=== PATIENT | female | born 1955 | race Caucasian/White ===

== ENCOUNTER 2019-07-19 22:15 | Emergency (ER) | payer OTHER ==
[~2019-07-19] VITALS: Ht 162.6 cm; Wt 61.0 kg
[~2019-07-19 22:15] MED LIST: CARBIDOPA-LEVO1 EACH PO; COLACE100 MG PO; LAMICTAL150 MG PO; MELATONIN3 MG PO; MELATONIN5 M2 PO; RENAGEL800 MG PO; RENAL VITAMIN0.8 MG PO; VENLAFAXINE HCL75 MG PO; VITAMIN D32000 UNI1 PO; WELLBUTRIN XL150 MG PO; ZOLPIDEM TARTRA10 MG PO
--- OUTSIDE RECORDS SUMMARY | 2019-07-19 22:18 | XMS ---
PreManage Notification: JAYJAY LEE Security Store Receiving Specialist Events No recent Security Events currently on file CRITERIA MET - HIPOLITOP CARE PROVIDERS Claude Trejo MD Primary Care Current PHONE: Unknown oraurelio Case or Brand Communications Manager Current PHONE: Unknown Phyllis has no Care Guidelines for this patient. Rupa VISIT COUNT (12 MO.) 1 [facility] TOTAL 1 NOTE: Visits indicate total known visits. ED/UCC VISIT TRACKING (12 MO.) 07/19/2019 22:[address] [facility] [place] TYPE: Emergency COMPLAINT: - FEVER, CHILLS INPATIENT VISIT TRACKING (12 MO.) No inpatient visits to display in this time frame [id number]
[2019-07-19] MEDS ORDERED: KEFLEX500 MG PO (23:44)
== END 2019-07-20 00:22 | disposition home or self-care (01) ==
LOC: ED 22:15
DX: N12 Tubulo-interstitial nephritis, not specified as acute or chronic (principal); Z88.0 Allergy status to penicillin; Z91.048 Other nonmedicinal substance allergy status; Z88.8 Allergy status to other drugs, medicaments and biological substances; Z88.5 Allergy status to narcotic agent; Z91.040 Latex allergy status; Z88.1 Allergy status to other antibiotic agents; Z79.899 Other long term (current) drug therapy
CPT/HCPCS: 71045; 80053; 81001; 83605; 85025; 87502; 96365; 99284-25; J0696; J7040

== ENCOUNTER 2021-06-17 11:25 | Emergency (ER) | payer MEDICARE ==
[~2021-06-17] VITALS: Ht 162.6 cm; Wt 56.0 kg
[~2021-06-17 11:25] MED LIST changes: +KEFLEX500 MG PO
[2021-06-17] MEDS ORDERED: CALCITRIOL0.25 MCG PO (12:19)
== END 2021-06-17 12:42 | disposition home or self-care (01) ==
LOC: ED 11:25
DX: T82.898A Other specified complication of vascular prosthetic devices, implants and grafts, initial encounter (principal); Z88.8 Allergy status to other drugs, medicaments and biological substances; Z88.0 Allergy status to penicillin; Z88.1 Allergy status to other antibiotic agents; Z91.048 Other nonmedicinal substance allergy status; Z88.5 Allergy status to narcotic agent; Z91.040 Latex allergy status; Z79.899 Other long term (current) drug therapy
CPT/HCPCS: 99283

== ENCOUNTER 2021-12-28 12:23 | Emergency (ER) | payer MEDICARE ==
[~2021-12-28] VITALS: Ht 162.6 cm; Wt 56.0 kg
[~2021-12-28 12:23] MED LIST changes: +CALCITRIOL0.25 MCG PO
== END 2021-12-28 14:20 | disposition home or self-care (01) ==
LOC: ED 12:23
DX: U07.1 COVID-19 (principal); Z88.0 Allergy status to penicillin; Z88.5 Allergy status to narcotic agent; Z88.8 Allergy status to other drugs, medicaments and biological substances; Z91.040 Latex allergy status; Z88.1 Allergy status to other antibiotic agents; Z79.899 Other long term (current) drug therapy
CPT/HCPCS: 96374; 99283-25

== ENCOUNTER → 2022-02-09 | Emergency (ER) | payer MEDICARE ==
[~2022-02-09] VITALS: Ht 162.6 cm; Wt 59.2 kg
[~2022-02-09] MED LIST changes: +CEPHALEXIN500 M1 PO
--- OUTSIDE RECORDS SUMMARY | 2022-02-09 08:30 | XMS ---
PreManage Notification: JAYJAY LEE Security Nurse Office Events No recent Security Events currently on file CRITERIA MET - [facility] - 2 Visits in 30 Days CARE PROVIDERS MYKE PAYAN Internal Medicine 07/20/2019-Current PHONE: Unknown Phyllis has no Care Guidelines for this patient. Care History Medical/Surgical 07/20/2019 [facility] - Patient is currently established with [facility]. If patient is seen in the ED during business hours. Please contact CHWs at [facility]. Care Recommendation: If this patient has had 5 or more Emergency Department visits in the last 12 months.\T\nbsp; Patient will require education on the scope and purpose of the ED as an acute care provider not a Primary Care Provider and should not be utilized for chronic conditions.\T\nbsp; These are guidelines and the provider should exercise clinical judgment when providing care. 07/20/2019 [facility] I left voice mail with patient to call PCP for 2 week follow up visit. E.D. VISIT COUNT (12 MO.) 4 [facility] TOTAL 4 NOTE: Visits indicate total known visits. ED/UCC VISIT TRACKING (12 MO.) 02/09/2022 08:23 [facility] [place] TYPE: Emergency COMPLAINT: - L FLANK PAIN, WEAKNESS 02/06/2022 06:21 [facility] [place] TYPE: Emergency COMPLAINT: - SOB, POSS UTI, UPPER ABD PAIN 12/28/2021 12:23 [facility] [place] TYPE: Emergency COMPLAINT: - FLU SYNPTOMS DIAGNOSES: - Latex allergy status - Other long term care pharmacist (current) drug therapy - Allergy status to narcotic agent - COVID-19 - Allergy status to other antibiotic agents - Allergy status to penicillin - Allergy status to other drugs, medicaments and biological substances 06/17/2021 11:27 [facility] [place] TYPE: Emergency COMPLAINT: - R ARM FISTULA BRUISING DIAGNOSES: - Latex allergy status - Other nonmedicinal substance allergy status - Allergy status to penicillin - Other specified complication of vascular prosthetic devices, implants and grafts, initial encounter - Allergy status to narcotic agent - Allergy status to other antibiotic agents - Allergy status to other drugs, medicaments and biological substances - Other specified complication of vascular prosthetic devices, implants and grafts, initial encounter - Other long term care pharmacist (current) drug therapy INPATIENT VISIT TRACKING (12 MO.) No inpatient visits to display in this time frame [id number]
== END ==
LOC: ED 08:23
DX: J18.9 Pneumonia, unspecified organism (principal); R09.02 Hypoxemia; U07.1 COVID-19; N39.0 Urinary tract infection, site not specified; N18.6 End stage renal disease; Z99.2 Dependence on renal dialysis; Z88.6 Allergy status to analgesic agent; Z88.1 Allergy status to other antibiotic agents; Z91.040 Latex allergy status; Z88.5 Allergy status to narcotic agent; Z88.0 Allergy status to penicillin; Z88.8 Allergy status to other drugs, medicaments and biological substances; Z91.048 Other nonmedicinal substance allergy status
CPT/HCPCS: 36415; 71045; 80053; 81001; 83605; 85025; 87502; 93005; 93010; C9803; J0456; J0692; J1170; J2405; J7030; J7060; U0003

== ENCOUNTER 2022-07-06 19:48 | Emergency (ER) | payer MEDICARE ==
[~2022-07-06] VITALS: Ht 160 cm; Wt 54.6 kg
[2022-07-06] MEDS ORDERED: ONDANSETRON ODT4 MG PO (22:11)
[2022-07-06] MEDS ORDERED: MECLIZINE HCL25 MG PO (22:11)
== END 2022-07-06 22:23 | disposition home or self-care (01) ==
LOC: ED 19:48
DX: R42 Dizziness and giddiness (principal); R93.0 Abnormal findings on diagnostic imaging of skull and head, not elsewhere classified; Z51.81 Encounter for therapeutic drug level monitoring; Z88.0 Allergy status to penicillin; Z91.048 Other nonmedicinal substance allergy status; Z88.5 Allergy status to narcotic agent; Z91.040 Latex allergy status; Z88.1 Allergy status to other antibiotic agents; Z88.8 Allergy status to other drugs, medicaments and biological substances; Z79.899 Other long term (current) drug therapy
CPT/HCPCS: 36415; 70450; 80053; 85025; 85610; 85730; 99284-25; A9270

== ENCOUNTER 2022-07-08 05:28 | Emergency (ER) | payer MEDICARE ==
[~2022-07-08] VITALS: Ht 160 cm; Wt 54.6 kg
[~2022-07-08 05:28] MED LIST changes: +MECLIZINE HCL25 MG PO; +ONDANSETRON ODT4 MG PO
--- OUTSIDE RECORDS SUMMARY | 2022-07-08 05:36 | XMS ---
PreManage Notification: JAYJAY LEE Security Handicraft Or Hobby Shop Manager Events No recent Security Events currently on file CRITERIA MET - [facility] - 2 Visits in 30 Days CARE PROVIDERS MYKE PAYAN Internal Medicine 07/20/2019-Current PHONE: Unknown Phyllis has no Care Guidelines for this patient. Care History Medical/Surgical 07/20/2019 [facility] - Patient is currently established with [facility]. If patient is seen in the ED during business hours. Please contact CHWs at [facility]. Care Recommendation: If this patient has had 5 or more Emergency Department visits in the last 12 months.\T\nbsp; Patient will require education on the scope and purpose of the ED as an acute care provider not a Primary Care Provider and should not be utilized for chronic conditions.\T\nbsp; These are guidelines and the provider should exercise clinical judgment when providing care. 07/20/2019 [facility] I left voice mail with patient to call PCP for 2 week follow up visit. E.D. VISIT COUNT (12 MO.) 5 [facility] TOTAL 5 NOTE: Visits indicate total known visits. ED/UCC VISIT TRACKING (12 MO.) 07/08/2022 05:28 [facility] [place] TYPE: Emergency COMPLAINT: - FOLLOW UP POSS STROKE 07/06/2022 19:49 [facility] [place] TYPE: Emergency COMPLAINT: - VOMITING 02/09/2022 08:23 [facility] [place] TYPE: Emergency COMPLAINT: - L FLANK PAIN, WEAKNESS DIAGNOSES: - Allergy status to analgesic agent - Dependence on renal dialysis - Latex allergy status - Allergy status to narcotic agent - Allergy status to other antibiotic agents - End stage renal disease - Shortness of breath - Allergy status to other drugs, medicaments and biological substances - Hypoxemia - Allergy status to penicillin - Urinary tract infection, site not specified - Other nonmedicinal substance allergy status - Pneumonia, unspecified organism - COVID-19 02/06/2022 06:21 [facility] [place] TYPE: Emergency COMPLAINT: - SOB, POSS UTI, LEFT UPPER ABD PAIN DIAGNOSES: - Allergy status to penicillin - Left upper quadrant pain - Latex allergy status - Personal history of malignant neoplasm of ovary - Allergy status to other antibiotic agents - Allergy status to other drugs, medicaments and biological substances - Other half-way (current) drug therapy - Other nonmedicinal substance allergy status 12/28/2021 12:23 [facility] [place] TYPE: Emergency COMPLAINT: - FLU SYNPTOMS DIAGNOSES: - Allergy status to penicillin - COVID-19 - Other half-way (current) drug therapy - Allergy status to other drugs, medicaments and biological substances - Allergy status to other antibiotic agents - Allergy status to narcotic agent - Latex allergy status INPATIENT VISIT TRACKING (12 MO.) No inpatient visits to display in this time frame [id number]
== END 2022-07-08 08:49 | disposition home or self-care (01) ==
LOC: ED 05:28
DX: D49.6 Neoplasm of unspecified behavior of brain (principal); Z88.0 Allergy status to penicillin; Z91.048 Other nonmedicinal substance allergy status; Z91.040 Latex allergy status; Z88.5 Allergy status to narcotic agent; Z88.1 Allergy status to other antibiotic agents; Z88.8 Allergy status to other drugs, medicaments and biological substances; Z79.899 Other long term (current) drug therapy
CPT/HCPCS: 70553; 99284-25; A9579

== ENCOUNTER 2022-07-31 09:42 | Emergency (ER) | payer MEDICARE ==
[~2022-07-31] VITALS: Ht 160 cm; Wt 55.3 kg
[~2022-07-31 09:42] MED LIST changes: +LIDODERM1 EACH TD
--- OUTSIDE RECORDS SUMMARY | 2022-07-31 09:50 | XMS ---
PreManage Notification: JAYJAY LEE Security International Account Representative Events No recent Security Events currently on file CRITERIA MET - [facility] - 2 Visits in 30 Days - 6 ED Visits in 6 Months CARE PROVIDERS MYKE PAYAN Internal Medicine 07/20/2019-Current PHONE: Unknown Phyllis has no Care Guidelines for this patient. Care History Medical/Surgical 07/20/2019 [facility] - Patient is currently established with [facility]. If patient is seen in the ED during business hours. Please contact CHWs at [facility]. Care Recommendation: If this patient has had 5 or more Emergency Department visits in the last 12 months.\T\nbsp; Patient will require education on the scope and purpose of the ED as an acute care provider not a Primary Care Provider and should not be utilized for chronic conditions.\T\nbsp; These are guidelines and the provider should exercise clinical judgment when providing care. 07/20/2019 [facility] I left voice mail with patient to call PCP for 2 week follow up visit. E.D. VISIT COUNT (12 MO.) [facility] TOTAL 7 NOTE: Visits indicate total known visits. ED/UCC VISIT TRACKING (12 MO.) 07/31/2022 09:43 [facility] [place] TYPE: Emergency COMPLAINT: - LOW B/P 07/29/2022 22:30 [facility] [place] TYPE: Emergency COMPLAINT: - HURTS TO BREATHE DIAGNOSES: - Shortness of breath - Allergy status to narcotic agent - Other chest pain - Allergy status to other antibiotic agents - Atelectasis - Other fci (current) drug therapy - Latex allergy status - Allergy status to penicillin - Other nonmedicinal substance allergy status 07/08/2022 05:28 [facility] [place] TYPE: Emergency COMPLAINT: - FOLLOW UP POSS STROKE DIAGNOSES: - Allergy status to other drugs, medicaments and biological substances - Allergy status to penicillin - Neoplasm of unspecified behavior of brain - Other nonmedicinal substance allergy status - Allergy status to narcotic agent - Latex allergy status - Allergy status to other antibiotic agents - Other fci (current) drug therapy - Dizziness and giddiness 07/06/2022 19:49 [facility] [place] TYPE: Emergency COMPLAINT: - VOMITING DIAGNOSES: - Allergy status to other antibiotic agents - Nausea - Dizziness and giddiness - Allergy status to narcotic agent - Abnormal findings on diagnostic imaging of skull and head, not elsewhere classified - Allergy status to penicillin - Encounter for therapeutic drug level monitoring - Other nonmedicinal substance allergy status - Latex allergy status - Other exterminator helper (current) drug therapy - Allergy status to other drugs, medicaments and biological substances 02/09/2022 08:23 [facility] [place] TYPE: Emergency COMPLAINT: - L FLANK PAIN, WEAKNESS DIAGNOSES: - Urinary tract infection, site not specified - Other nonmedicinal substance allergy status - Pneumonia, unspecified organism - COVID-19 - Allergy status to analgesic agent - Dependence on renal dialysis - Latex allergy status - Allergy status to narcotic agent - Allergy status to other antibiotic agents - End stage renal disease - Shortness of breath - Allergy status to other drugs, medicaments and biological substances - Hypoxemia - Allergy status to penicillin 02/06/2022 06:21 [facility] TYPE: Emergency COMPLAINT: - SOB, POSS UTI, LEFT UPPER ABD PAIN DIAGNOSES: - Allergy status to other drugs, medicaments and biological substances - Other exterminator helper (current) drug therapy - Other nonmedicinal substance allergy status - Allergy status to penicillin - Left upper quadrant pain - Latex allergy status - Personal history of malignant neoplasm of ovary - Allergy status to other antibiotic agents 12/28/2021 12:23 [facility] [place] TYPE: Emergency COMPLAINT: - FLU SYNPTOMS DIAGNOSES: - Allergy status to narcotic agent - Latex allergy status - Allergy status to penicillin - COVID-19 - Other exterminator helper (current) drug therapy - Allergy status to other drugs, medicaments and biological substances - Allergy status to other antibiotic agents INPATIENT VISIT TRACKING (12 MO.) No inpatient visits to display in this time frame [id number]
[2022-07-31] MEDS ORDERED: CEFDINIR300 MG PO (12:04)
[2022-07-31] MEDS ORDERED: ONDANSETRON ODT8 MG PO (12:04)
== END 2022-07-31 14:05 | disposition home or self-care (01) ==
LOC: ED 09:42
DX: A41.9 Sepsis, unspecified organism (principal); R65.20 Severe sepsis without septic shock; N18.9 Chronic kidney disease, unspecified; N39.0 Urinary tract infection, site not specified; Z88.8 Allergy status to other drugs, medicaments and biological substances; Z91.048 Other nonmedicinal substance allergy status; Z88.0 Allergy status to penicillin; Z88.5 Allergy status to narcotic agent; Z91.040 Latex allergy status; Z88.1 Allergy status to other antibiotic agents; Z79.899 Other long term (current) drug therapy
CPT/HCPCS: 36415; 71045; 80053; 81001; 83605; 83735; 85007; 85025; 85379; 87040; 96361; 96365; 96375; 99285-25; J0692; J2405; J7030

== ENCOUNTER 2023-11-05 04:20 | Emergency (ER) | payer MEDICARE ==
[~2023-11-05] VITALS: Ht 160 cm; Wt 77.0 kg
[~2023-11-05 04:20] MED LIST changes: +CEFDINIR300 MG PO; +CEFEPIME-D1 GM/50 ML IV; +CIPRO500 MG PO; +DIALYVITE 800800 MCG PO; +ELIQUIS2.5 MG PO; +ELIQUIS5 MG PO; +GABAPENTIN300 MG PO; +GLIPIZIDE5 MG PO; +METOPROLOL SUCC25 MG PO; +MYCOPHENOLATE250 MG PO; +OMEPRAZOLE20 MG PO; +ONDANSETRON ODT8 MG PO; +PREDNISONE5 MG PO; +SULFAMETHOXAZO1 EACH PO; +TACROLIMUS1 MG PO; +VALGANCICLOVIR450 MG
[2023-11-05 04:55] LABS: BILIRUBIN, URINE NEGATIVE (negative); BLOOD/HGB, URINE MODERATE (Negative); KETONE, URINE NEGATIVE (Negative); LEUK ESTERASE, URINE MODERATE (negative); NITRITE, URINE POSITIVE (negative); PH, URINE 5.5 (5-7)
[2023-11-05 05:00] LABS: BACTERIA, URINE 3+ /hpf (negative); CASTS, URINE NONE SEEN \\lpf; CRYSTALS, URINE NONE SEEN (0-1+); EPITHELIAL CELLS, URINE SQUAMOUS 1+ /lpf (0-1+); REFLEX CULTURE, URINE Yes (No); WHITE BLOOD CELLS, URINE >50 /HPF (0-5)
[2023-11-05] MEDS ORDERED: CIPRO500 MG PO ×2 (05:05)
[2023-11-05] MEDS ORDERED: BUPROPION HCL200 MG PO ×2 (05:06)
[2023-11-05 05:10] VITALS: BP 143/60
[2023-11-05] MEDS ORDERED: CIPROFLOXACIN 500 MG TAB PO ONE (05:15)
[2023-11-06] MEDS ORDERED: CIPRO500 MG PO ×2 (08:00)
[2023-11-06] MEDS ORDERED: VENLAFAXINE HCL75 M1 PO ×2 (12:59)
[2023-11-06] MEDS ORDERED: CELLCEPT250 MG PO ×2 (13:01)
[2023-11-06] MEDS ORDERED: TOPROL XL50 MG PO ×2 (13:21)
[2023-11-06] MEDS ORDERED: NEURONTIN300 MG PO ×2 (13:23)
[2023-11-06] MEDS ORDERED: PREDNISONE5 MG PO ×2 (13:24)
== END 2023-11-05 05:10 | disposition home or self-care (01) ==
LOC: ED 04:20
PROVIDERS: Internal Medicine
DX: N39.0 Urinary tract infection, site not specified (principal); Z91.09 Other allergy status, other than to drugs and biological substances; Z88.5 Allergy status to narcotic agent; Z91.040 Latex allergy status; Z88.8 Allergy status to other drugs, medicaments and biological substances; Z79.899 Other long term (current) drug therapy
CPT/HCPCS: 81001; 87088; 99283

== ENCOUNTER 2023-11-05 17:54 | Observation (INO) | payer MEDICARE ==
[~2023-11-05] VITALS: Ht 160 cm; Wt 68.0 kg
[~2023-11-05 17:54] MED LIST changes: +BUPROPION HCL200 MG PO
[2023-11-05] MEDS ORDERED: SODIUM CHLORIDE 0.9% 1,000 ML IV ONE (18:15)
[2023-11-05 18:42] LABS: BASOPHILS 0.2 % (0-2); EOSINOPHILS 0.1 % (0-6); HEMATOCRIT 39.6 % (35.0-50.0); HEMOGLOBIN 13.2 g/dL (12.0-18.0); LYMPHOCYTES 5.4 % (24-44); MCH 31.2 (27-36); MCHC 33.4 g/dl (30-36); MCV 93.5 fl (81-99); MONOCYTES 7.9 % (0-12); NEUTROPHILS 86.4 % (39-80); PLATELET COUNT 146 K/uL (140-440); RBC 4.24 M/ul (4.3-5.7); RDW 13.4 (10.5-15.0)
[2023-11-05] MEDS ORDERED: ondansetron HCL 4 MG/2 ML VIAL IV ONE (18:45)
[2023-11-05 18:55] LABS: ALBUMIN 3.1 g/dL (3.4-5.0); ALBUMIN/GLOBULIN RATIO 0.76 (1.1-2.4); ANION GAP 14.9 (7-21); BILIRUBIN, TOTAL 0.9 ng/dL (0.2-1.0); BUN/CREATININE RATIO 15.87 (6.0-28.6); CALCIUM 9.3 mg/dL (8.5-10.1); CREATININE, SERUM 1.26 mg/dL (0.55-1.02); POTASSIUM 3.9 mmol/L (3.5-5.1); PROTEIN, TOTAL 7.2 g/dL (6.4-8.2)
[2023-11-05] MEDS ORDERED: CEFTRIAXONE/SODIUM CHLORIDE 1 GM/100 ML PIGGYBACK IV ONE (19:00)
[2023-11-05] MEDS ORDERED: PROCHLORPERAZINE EDISYLATE 10 MG/2 ML VIAL IV PRN (20:00)
[2023-11-05] MEDS ORDERED: ACETAMINOPHEN 500 MG TAB PO PRN (20:00)
[2023-11-05] MEDS ORDERED: ondansetron HCL 4 MG/2 ML VIAL IV PRN (20:00)
[2023-11-05] MEDS ORDERED: MAGNESIUM HYDROXIDE/AL HYDROX 30 ML CUP PO PRN (20:00)
[2023-11-05] MEDS ORDERED: SODIUM CHLORIDE 0.9% 1,000 ML IV SCH (20:00)
[2023-11-05 20:15] VITALS: BP 119/57
--- NOTE | 2023-11-05 20:15 | NUR ---
pt ARRIVED TO FLOOR, BROUGHT TO FLOOR BY ED RN. PRIMARY RN IN ROOM AND RECEIVING BEDSIDE REPORT. IV SITE WNL, FLUSHES EASILY AND IV FLUIDS INFUSING DIRECTED. ADMISSION COMPLETED WITH HELP FROM pt AND FRIEND/ROOMMATE ALBER. BED ALARM ON FOR SAFETY.
[2023-11-05] MEDS ORDERED: APIXABAN 5 MG TAB PO SCH (20:26)
--- NOTE | 2023-11-05 20:46 | NUR ---
PATIENT ASSEMENT COMPLETED. PATIENTS IV INFUSING PER ORDER. BED ALA ON FOR SAFETY. PATIENTS ADMISSION BEING COMPLETED BY NET FISHER. PLACED CALL TO MD FOR PATIENTS HOME MEDS. RECEIVED VERBAL ORDER TO GIVE HOME MEDS AND USED REPEAT BACK METHOD TO VERIFIY ORDER.
[2023-11-05] MEDS ORDERED: APIXABAN 5 MG TAB PO ONE (21:00)
[2023-11-05] MEDS ORDERED: MELATONIN 3 MG TAB PO PRN (21:00)
[2023-11-05] MEDS ORDERED: VENLAFAXINE HCL 75 MG CAPCR PO SCH (21:00)
[2023-11-05] MEDS ORDERED: PATIENT'S OWN MEDICATION(S) ORDER PO SCH ×2 (22:00)
[2023-11-05 22:20] VITALS: BP 119/57
--- NOTE | 2023-11-05 22:21 | NUR ---
scheduled 2100 meds given along with prn tylenol for temp of 100.0 per request of primary thuy hutchins. iv site wnl, iv fluids infusing as directed. call light in reach and bed alrm on for safety.
--- NOTE | 2023-11-05 22:51 | NUR ---
USED SARAH TO VERIFY HOME MEDICATIONS.
[2023-11-05] MEDS ORDERED: TACROLIMUS 1 MG CAPSULE PO ONE (22:54)
[2023-11-05] MEDS ORDERED: MYCOPHENOLATE 250 MG PO ONE (22:57)
--- NOTE | 2023-11-05 23:39 | NUR ---
SCHEDULED MEDICATIONS GIVEN PER ORDER. PATIENT DENIES NEED TO USE RESTROOM. PATIENTS TEMP TAKEN AND RECORDED. PATIENT DENIES ANY NEEDS. CALL LIGHT IN REACH. IV INFUSING PER ORDER. BED ALARM ON FOR SAFETY.
--- NOTE | 2023-11-06 00:54 | NUR ---
GOT REPORT FROM DENTAL EQUIPMENT MECHANIC NURSE. PATIENT CURRENTLY SLEEPING ON HER LEFT SIDE. REGULAR RESPIRATIONS NOTED.
[2023-11-06 01:18] VITALS: BP 106/41
--- NOTE | 2023-11-06 01:21 | NUR ---
CALL LIGHT ANSWERED. PT STATED THE NEED TO USE BATHROOM. DEICER INSPECTOR ELECTRIC ASSISTED PT TO BATHROOM WITH IV TOWER. BED LINENS STRAIGHTEND. PT ASSISTED BACK TO BED. DEICER INSPECTOR ELECTRIC TOOK VITALS. PT STATED NO FURTHER NEEDS AT THIS TIME. CALL LIGHT PLACED WITHIN REACH.
--- NOTE | 2023-11-06 02:36 | NUR ---
PATIENT CURRENTLY SLEEPING ON HER LEFT SIDE. REGULAR RESPIRATIONS NOTED.
--- NOTE | 2023-11-06 04:31 | NUR ---
PATIENT WOKE UP WHEN THIS NURSE WAS GOING INTO CHECK ON HER. PATIENT DENIES ANY NEEDS AT THIS TIME AND IS GOING TO BACK TO BED.
[2023-11-06 05:35] LABS: BASOPHILS 0.2 % (0-2); HEMATOCRIT 37.9 % (35.0-50.0); HEMOGLOBIN 12.5 g/dL (12.0-18.0); LYMPHOCYTES 8.5 % (24-44); MCH 31.2 (27-36); MCV 94.7 fl (81-99); NEUTROPHILS 81.3 % (39-80); PLATELET COUNT 122 K/uL (140-440); RDW 13.6 (10.5-15.0)
[2023-11-06 05:44] LABS: ANION GAP 15.1 (7-21); BUN/CREATININE RATIO 13.15 (6.0-28.6); CALCIUM 8.4 mg/dL (8.5-10.1); CREATININE, SERUM 1.14 mg/dL (0.55-1.02); POTASSIUM 4.1 mmol/L (3.5-5.1)
--- NOTE | 2023-11-06 06:21 | NUR ---
PATIENT UP WITH WALKER SBA WITH SPORTS MARKETING SPECIALIST TO THE RESTROOM. PATIENT TOLERATED WELL. THIS NURSE INTO CHECK ON PATIENT. PATIENT IS CURRENTLY A&O. SHE STATES SHE DOESNT FEEL BACK 100% BUT SHE DOES FEEL LIKE SHE IS MAKING MORE SENSE THIS MORNING. PATIENT DID NOT HAVE ANY BURNING WITH THIS URINATION. NEW IV FLUIDS HUNG FOR PATIENT SHE RAN OUT.
[2023-11-06 06:23] VITALS: BP 127/48
--- NOTE | 2023-11-06 06:34 | NUR ---
CUTTER DOWN ENTERED ROOM AND OBTAINED VITALS. PT NEEDED TO USE BATHROOM. CUTTER DOWN ASSISTED PT TO BATHROOM. PT AMBULATES WELL. BED LINENS STRAIGHTEND. PT ASSISTED BACK TO BED. I AND O DOCUMENTED. PT STATES NO FURTHER NEEDS AT THIS TIME. CALL LIGHT PLACED WITHIN REACH.
[2023-11-06] MEDS ORDERED: predniSONE 5 MG TAB PO SCH (08:00)
[2023-11-06] MEDS ORDERED: CIPRO500 MG PO ×2 (08:00)
--- NOTE | 2023-11-06 08:53 | NUR ---
IV FLUIDS STOPPED PER ORDER. PATIENT SITTING UP IN BED EATING BREAKFAST. FULL BODY ASSESSMENT DONE. PATIENT AAOX3. REPORTS SALAZAR 5/10 ON PAIN SCALE. ADMINISTERED PO TYLENOL PER MAR. ADMINISTERED SCHEDULED MORNING MEDICATIONS. ANTI-REJECTION MEDICATION NON-FORMULARY, PATIENT VERBALIZED WILL TAKE ONCE HOME. PLAN TO DISCHARGE THIS MORNING. VS WNL. AFEBRILE.
[2023-11-06] MEDS ORDERED: TACROLIMUS 1 MG CAP PO SCH (09:00)
[2023-11-06] MEDS ORDERED: METOPROLOL SUCCINATE 25 MG TABCR PO SCH (09:00)
[2023-11-06] MEDS ORDERED: PANTOPRAZOLE SODIUM 40 MG TABEC PO SCH (09:00)
[2023-11-06] MEDS ORDERED: APIXABAN 5 MG TAB PO SCH (09:00)
[2023-11-06] MEDS ORDERED: BUPROPION HCL 100 MG PO SCH (09:00)
[2023-11-06 09:52] VITALS: BP 124/52
[2023-11-06 11:28] VITALS: BP 119/54
[2023-11-06] MEDS ORDERED: PHARMACY RENAL DOSE ADJUSTMENT 1 DOSE MISC PO SCH (12:00)
[2023-11-06] MEDS ORDERED: VENLAFAXINE HCL75 M1 PO ×2 (12:59)
[2023-11-06] MEDS ORDERED: CELLCEPT250 MG PO ×2 (13:01)
[2023-11-06 13:19] VITALS: BP 111/57
[2023-11-06] MEDS ORDERED: TOPROL XL50 MG PO ×2 (13:21)
[2023-11-06] MEDS ORDERED: NEURONTIN300 MG PO ×2 (13:23)
[2023-11-06] MEDS ORDERED: PREDNISONE5 MG PO ×2 (13:24)
--- NOTE | 2023-11-06 13:31 | NUR ---
PT FRIEND ARRIVED WITH CLOTHES/RIDE HOME, SHE FELT PATIENT SHOULD NOT BE DISCHARGED AT THIS TIME AND SHOULD BE MONITORED LONGER. EXPLAINED TO HER THAT MD FELT SHE WAS MEDICALLY STABLE TO BE DISCHARGED AND TO PREVENTIVE MEDICINE PHYSICIAN AND COMPLETE THE ORAL ANTIBIOTICS THAT ARE AT PHARMACY. FOLLOWED UP WITH PATIENT WHEN FRIEND WENT TO CAR TO GET CLOTHES TO DETERMINE IF SHE FELT SHE WANTED TO APPEAL HER DISCHARGE AND REMAIN IN HOSPITAL FOR FURTHER MONITORING, PT STATES SHE FEELS IT WAS QUICK BUT SHE FEELS SHE IS OKAY TO DISCHARGE. DID INFORM HER TO FOLLOW-UP WITH [facility] [employer]. ADVISED PATIENT AGAIN TO MAKE SURE SHE PICKS UP ANTIBIOTICS AT PHARMACY AND COMPLETES FULL COURSE FOR HER UTI. PT VERBALIZED UNDERSTANDING, ASKED AGAIN IF SHE WANTED TO APPEAL AND SHE SAID SHE WAS OKAY WITH DISCHARGE AT THIS TIME.
[2023-11-06] MEDS ORDERED: CEFTRIAXONE/SODIUM CHLORIDE 1 GM/100 ML PIGGYBACK IV SCH (18:00)
== END 2023-11-06 13:36 | disposition home or self-care (01) ==
LOC: ED 17:54 → MS 17:56
PROVIDERS: Emergency Medicine; ADMIT Family Medicine; ATTEND Family Medicine
DX: N39.0 Urinary tract infection, site not specified (principal); N17.9 Acute kidney failure, unspecified; N18.30 Chronic kidney disease, stage 3 unspecified; F39 Unspecified mood [affective] disorder; Z91.040 Latex allergy status; Z88.8 Allergy status to other drugs, medicaments and biological substances; Z88.5 Allergy status to narcotic agent; Z79.899 Other long term (current) drug therapy; Z94.0 Kidney transplant status
CPT/HCPCS: 36415; 80048; 80053; 83605; 85025; 87040; A9270; J0696; J2405; J7030; J7512

== ENCOUNTER 2025-03-05 16:06 | Observation (INO) | payer MEDICARE ==
[~2025-03-05] VITALS: Ht 160 cm; Wt 71.1 kg
[~2025-03-05 16:06] MED LIST changes: +CELLCEPT250 MG PO; +NEURONTIN300 MG PO; +TOPROL XL50 MG PO; +VENLAFAXINE HCL75 M1 PO; -VITAMIN D32000 UNI1 PO; +VITAMIN D350 MC3 PO
[2025-03-05] MEDS ORDERED: SODIUM CHLORIDE 0.9% 1,500 ML IV PRN (17:30)
[2025-03-05 17:37] LABS: BASOPHILS 0.3 % (0.1-1.2); EOSINOPHILS 0.5 % (0.7-5.8); LYMPHOCYTES 4.8 % (19.3-51.7); MCH 29.6 PG (25.6-32.2); MCHC 31.3 g/dL (32.2-35.5); MCV 94.6 fL (79.4-94.8); MONOCYTES 5.7 % (4.7-12.5); NEUTROPHILS 88.0 % (34.0-71.1); RBC 4.63 M/uL (3.93-5.22)
[2025-03-05 17:43] LABS: INR 1.2 (0.80-1.30); PROTIME 14.4 Sec (11.2-14.2)
[2025-03-05 17:47] LABS: ALT (SGPT) 16.0 U/L (14-59); AST (SGOT) 18.0 U/L (15-37); GLOMERULAR FILTRATION RATE,EST 37.0 mL/min (>60); PROTEIN, TOTAL 7.8 g/dL (6.4-8.2); UREA NITROGEN 24.0 mg/dL (7-18)
[2025-03-05 18:16] LABS: BLOOD/HGB, URINE SMALL (Negative); KETONE, URINE TRACE (Negative); LEUK ESTERASE, URINE MODERATE (negative); NITRITE, URINE POSITIVE (negative)
[2025-03-05 18:22] LABS: BACTERIA, URINE 4+ /hpf (negative); CRYSTALS, URINE NONE SEEN (0-1+); EPITHELIAL CELLS, URINE SQUAMOUS 1+ /lpf (0-1+)
[2025-03-05 18:23] LABS: CASTS, URINE NONE SEEN \\lpf; REFLEX CULTURE, URINE Yes (No)
[2025-03-05 18:25] LABS: LACTIC ACID, BLOOD 1.2 mmol/L (0.4-2.0)
[2025-03-05] MEDS ORDERED: ACETAMINOPHEN 500 MG TAB PO ONE (19:15)
[2025-03-05] MEDS ORDERED: DEXTROSE 50% 50 ML SYR IV PRN ×2 (19:45)
[2025-03-05] MEDS ORDERED: LACTATED RINGER'S 1,000 ML IV SCH (19:45)
[2025-03-05] MEDS ORDERED: DEXTROSE 5% 1,000 ML IV PRN (19:45)
[2025-03-05] MEDS ORDERED: ACETAMINOPHEN 325 MG TAB PO PRN (19:45)
[2025-03-05] MEDS ORDERED: IBLOOD GLUCOSE TEST STRIP 1 EA TEST XX PRN (19:45)
[2025-03-05] MEDS ORDERED: GLUCAGON,HUMAN RECOMBINANT 1 MG/ML VIAL SUB-Q PRN (19:45)
[2025-03-05 20:37] VITALS: BP 104/48
--- NOTE | 2025-03-05 20:40 | NUR ---
REPORT RECEIVED FROM TANYA GIORDANO. pt RESTING IN THE BED. ASSESSMENT AND VITAL SIGNS DONE. IV'S ASSESSED, WNL. BRIEF PLACED ON pt. pt EDUCATED ABOUT USE OF CALL LIGHT. EDA GIORDANO ASSISTED WITH ADMISSION. BED ALARM PLACED ON pt. pt DENIES ANY OTHER NEEDS AT THIS TIME. CALL LIGHT WITHIN REACH.
[2025-03-05 20:50] VITALS: BP 104/48
[2025-03-05] MEDS ORDERED: INSULIN LISPRO 100 UNIT/ML ML SUB-Q SCH (21:00)
[2025-03-05] MEDS ORDERED: MELATONIN 3 MG TAB PO PRN (21:00)
[2025-03-05] MEDS ORDERED: IBLOOD GLUCOSE TEST STRIP 1 EA TEST VI SCH (21:00)
--- NOTE | 2025-03-05 21:00 | NUR ---
ADMITTED TO ROOM 110 FROM ER, PT ALERT TO NAME, PLACE AND TOWN BUT NOT SITUATION OR DATE. ABLE TO ANSWER SOME ADMIT QUESTIONS BUT NOT OTHERS. DROWSY, SHORT ATTENTION SPAN, VERY SLOW RESPONSES AND THEN AT TIMES SHE GOES TO SLEEP WHEN TALKING TO THIS RN. R MID UPPER ARM FISTULE IN PLACE. SCAR RMID ARM. BRUISED ARMS. IV SL LW AND L FOOT PATENT. BED ALARMS ON FOR SAFETY, FALL PRECAUTIONS IN PLACE.
[2025-03-06] VITALS (12 sets, daily range): BP systolic 106–129; BP diastolic 44–53
--- NOTE | 2025-03-06 00:46 | NUR ---
pt RESTING IN THE BED WITH EYES CLOSED. RR EVEN AND UNLABORED. CALL LIGHT WITHIN REACH.
--- NOTE | 2025-03-06 01:53 | NUR ---
in rm to do vital signs with package maker PT has slight fever of 100.7. this RN administered PRN tylenol and will recheck temp. PT denies the need for the BR. PT denies any other needs at this time. call light within reach.
--- NOTE | 2025-03-06 02:29 | NUR ---
pt BED ALARM SOUNDED. pt TRYING TO GET OUT OF THE BED. pt C/O NAUSEA AND HAD A LITTLE BIT OF EMESIS. PRN ANTINAUSEA MEDS ADMINISTERED. pt UP TO THE BSC. 2PA. pt VERY UNSTEADY. pt BACK TO BED. pt SWEATY STATING SHE IS HOT. COLD RAG AND ICE PACKS PROVIDED. BED ALARM ON. pt DENIES ANY OTHER NEEDS AT THIS TIME. CALL LIGHT WITHIN REACH.
--- NOTE | 2025-03-06 03:44 | NUR ---
IN RM TO RECHECK pt TEMP. pt TEMP 99.1. pt STATES SHE FEELS BETTER AND HAS NO COMPLAINTS AT THIS TIME. CALL LIGHT WITHIN REACH.
[2025-03-06 05:58] LABS: BASOPHILS 0.2 % (0.1-1.2); EOSINOPHILS 0 % (0.7-5.8); LYMPHOCYTES 3.7 % (19.3-51.7); MCH 29.8 PG (25.6-32.2); MCHC 31.4 g/dL (32.2-35.5); MCV 94.9 fL (79.4-94.8); MONOCYTES 5.1 % (4.7-12.5); NEUTROPHILS 90.4 % (34.0-71.1); RBC 3.93 M/uL (3.93-5.22)
[2025-03-06 06:09] LABS: GLOMERULAR FILTRATION RATE,EST 52.0 mL/min (>60); UREA NITROGEN 19.0 mg/dL (7-18)
--- NOTE | 2025-03-06 06:14 | NUR ---
pt RESTED THROUGH THE NIGHT. pt HAD A LOW GRADE FEVER IN THE NIGHT. PRN TYLENOL ADMINISTERED. pt TEMP WNL NEAR END OF SHIFT. pt STATES SHE FEELS BETTER. NO OTHER NEEDS AT THIS TIME.
[2025-03-06] MEDS ORDERED: ATOMOXETINE HCL40 MG PO (07:31)
[2025-03-06] MEDS ORDERED: LAMICTAL25 MG PO (07:35)
[2025-03-06] MEDS ORDERED: TRADJENTA5 MG PO (07:39)
--- NOTE | 2025-03-06 07:42 | NUR ---
REPORT RECEIVED FROM DARRICK GIORDANO. PT LAYING IN BED WITH CALL LIGHT WITHIN REACH AND BED ALARM ON. NO REQUESTS AT THIS TIME.
--- NOTE | 2025-03-06 08:45 | NUR ---
PT SITTING UP IN BED EATING BREAKFAST. PT DENIES PAIN AT THIS TIME. VISITORS IN TO SEE PT - BROUGHT PT HOME MEDS (LOCKED IN LOCK BOX IN ROOM) AND POLST FORM (COPY MADE AND ORIGINAL GIVEN BACK TO VISITORS). CALL LIGHT WITHIN REACH.
--- NOTE | 2025-03-06 08:52 | NUR ---
PATIENT WASHED HER FACED AND BRUSHED HER TEETH. BED ALARM IS ON. PATIEN COMBED HER HAIR. PATIENT IS NOW EATING BREAKFAST WITH VISITORS IN THE ROOM.
[2025-03-06] MEDS ORDERED: MAGNESIUM SULFATE 2 GM/50 ML BAG IV SCH (09:00)
[2025-03-06] MEDS ORDERED: APIXABAN 5 MG TAB PO SCH (09:00)
[2025-03-06] MEDS ORDERED: HEParin SOD (PORCINE) 5,000 UNIT/ML SDV SUB-Q SCH (09:00)
--- NOTE | 2025-03-06 09:31 | NUR ---
UR CLINICAL REVIEW: 2 MN FOR [facility]-PER TRAINING AND DEVELOPMENT OFFICER MEET OBS FOR UTI WITH HX OF ESRD AND KIDNEY TRANSPLANT MEDICARE OBS 03/05/25 @ 1938 ORDER MATCHES REG NO AUTH REQUIRED PER MEDICARE GUIDELINES PER AM MEETING PATIENT IMPROVING. POSSIBLE DC TODAY PER 03/07/25
--- NOTE | 2025-03-06 09:33 | NUR ---
VISITED DURING SPIRITUAL CARE ROUNDS. PT IN OVERALL GOOD SPIRITS; SUPPORTED BY FAMILY IN ROOM; NO IMMEDIATE NEEDS. SECURITY INVESTIGATOR PROVIDED SUPPORTIVE PRESENCE, HOSPITALITY, PRAYER, FACILITATED INTERACTION WITH THERAPY ANIMAL. PT AND FAMILY EXPRESSED GRATITUDE, CRAIG [employer]RAIG [employer]UN[employer] SOURCE OF STRENGTH.
--- NOTE | 2025-03-06 09:50 | NUR ---
CASE MANAGEMENT AND DR MOSLEY IN TO SEE PT.
--- NOTE | 2025-03-06 09:50 | NUR ---
Spoke with Carlos. She denies needs. Lives with her roommate Daysi. Pt denies issues getting in or out her home. She drives, shops, cookes. They share chores. Pt arrived with altered mental status but is improved today. She recognizes me from working together 30 years ago. She does have some problems remembering her meds. Dr. Tamezoo in room and also comments she is much improved from yesterday. Pt states she is having chills and is cold. Plans for her to stay one more day. PT is recommending SNF, pt wants to go home.
--- NOTE | 2025-03-06 10:00 | NUR ---
PT GIVEN WARM BLANKET REQUESTED. PT STATES DESIRE TO TAKE A NAP. CALL LIGHT WITHIN REACH. NO OTHER NEEDS AT THIS TIME.
[2025-03-06] MEDS ORDERED: ALENDRONATE SOD70 MG PO (11:03)
--- NOTE | 2025-03-06 11:03 | NUR ---
MED REC COMPLETE
[2025-03-06] MEDS ORDERED: TACROLIMUS 1 MG CAP PO SCH (12:00)
[2025-03-06] MEDS ORDERED: PHARMACY RENAL DOSE ADJUSTMENT 1 DOSE MISC PO SCH (12:00)
[2025-03-06] MEDS ORDERED: lamoTRIgine 25 MG TAB PO SCH (12:00)
--- NOTE | 2025-03-06 12:12 | NUR ---
PATIENT IS IN CHAIR WITH LUNCH IN FRONT OF HER. STAFF TRAINER'S MIHIR AND LORE CHANGED BED LINENS AND TOOK BLOOD GLUCOSE. CALL LIGHT WITHIN REACH AND NO FURTHER NEEDS AT THIS TIME.
--- NOTE | 2025-03-06 13:06 | NUR ---
PT SITTING IN CHAIR WITH LEGS ELEVATED AND CHAIR ALARM ON. CALL LIGHT WITHIN REACH. NO REQUESTS AT THIS TIME.
--- NOTE | 2025-03-06 15:51 | NUR ---
PT RESTING IN BED, DENIES PAIN AT THIS TIME. CALL LIGHT WITHIN REACH.
--- NOTE | 2025-03-06 17:05 | NUR ---
PT AMBULATED TO RESTROOM TO VOID 500 CLEAR YELLOW URINE WITH GAIT BELT, FWW, AND 1 PA. PT TOLERATED WELL. PT BACK TO BED SITTING UP FOR DINNER. CALL LIGHT WITHIN REACH.
--- NOTE | 2025-03-06 18:33 | NUR ---
PT RESTING IN BED WITH EYES CLOSED AND RESPIRATIONS EVEN AND UNLABORED. CALL LIGHT WITHIN REACH AND BED ALARM ON.
--- NOTE | 2025-03-06 19:05 | NUR ---
REPORT RECEIVED FROM OSITO GIORDANO. pt RESTING IN THE BED ON LEFT SIDE. pt DENIES ANY OTHER NEEDS AT THIS TIME. CALL LIGHT WITHIN REACH. BOARD UPDATED.
--- NOTE | 2025-03-06 22:20 | NUR ---
ASSESSMENT AND VITAL SIGNS DONE. BG CHECKED WITH A RESULTS OF 144. SS INSULIN ADMINISTERED. pt SCHEDULED MEDS ADMINISTERED. pt UP TO THE BR. pt SBA WITH FWW. IV ASSESSED, WNL. IVF INFUSING PER ORDER. pt DENIES ANY OTHER NEEDS AT THIS TIME. CALL LIGHT WITHIN REACH.
--- NOTE | 2025-03-06 23:23 | NUR ---
pt RESTING IN THE BED WITH EYES CLOSED. RR EVEN AND UNLABORED. CALL LIGHT WITHIN REACH.
--- NOTE | 2025-03-07 01:28 | NUR ---
pt RESTING IN THE BED WITH EYES CLOSED. RR EVEN AND UNLABORED. CALL LIGHT WITHIN REACH.
--- NOTE | 2025-03-07 02:19 | NUR ---
pt CALLED FOR MILK AND CRACKERS. pt C/O 11/18 PAIN. PRN PAIN MEDS ADMINISTERED. pt DENIES ANY OTHER NEEDS AT THIS TIME. CALL LIGHT WITHIN REACH. SNACK PROVIDED.
--- NOTE | 2025-03-07 03:13 | NUR ---
pt RESTING IN THE BED WITH EYES CLOSED. RR EVEN AND UNLABORED. CALL LIGHT WITHIN REACH.
[2025-03-07 04:17] VITALS: BP 104/53
--- NOTE | 2025-03-07 04:20 | NUR ---
pt IV ALARMING. pt ASSESSMENT AND VITAL SIGNS DONE. WATER REFRESHED. pt DENIES ANY OTHER NEEDS AT THIS TIME. CALL LIGHT WITHIN REACH.
[2025-03-07 05:44] LABS: BASOPHILS 0.4 % (0.1-1.2); EOSINOPHILS 0.7 % (0.7-5.8); LYMPHOCYTES 9.7 % (19.3-51.7); MCH 29.2 PG (25.6-32.2); MCHC 30.8 g/dL (32.2-35.5); MCV 94.9 fL (79.4-94.8); MONOCYTES 10.9 % (4.7-12.5); NEUTROPHILS 77.9 % (34.0-71.1); RBC 3.90 M/uL (3.93-5.22)
[2025-03-07 06:00] LABS: GLOMERULAR FILTRATION RATE,EST 57.0 mL/min (>60); UREA NITROGEN 15.0 mg/dL (7-18)
--- NOTE | 2025-03-07 06:30 | NUR ---
pt CALLED TO GO TO THE BR. pt SBA WITH FWW. pt DENIES ANY OTHER NEEDS AT THIS TIME. CALL LIGHT WITHIN REACH. pt BACK TO BED.
--- NOTE | 2025-03-07 08:04 | NUR ---
PT RESTING IN BED WITH EYES CLOSED AND RESPIRATIONS EVEN AND UNLABORED. CALL LIGHT WITHIN REACH. REPORT RECEIVED FROM DARRICK GIORDANO.
[2025-03-07 09:17] VITALS: BP 108/50
--- NOTE | 2025-03-07 09:21 | NUR ---
CAME HIM TO GREET THE PATIENT. PATIENT SAID SHE WOULD LIKE TO GET UP SO WE WALKED TO THE BATHROOM PATIENT USING HER WALKER. BRUSHED HER TEETH AND WASHED HER FACE AT THE SINK. THAN WE WALKED BACK TO HER CHAIR SO SHE COULD EAT HER BREAKFAST.
--- NOTE | 2025-03-07 09:24 | NUR ---
WHEN I FINISHED HER PATIENT'S VITALS SHE SAID SHE NEEDED TO USE THE BATHROOM. CHAIR ALARM IS ON.
[2025-03-07 09:46] VITALS: BP 117/67
[2025-03-07] MEDS ORDERED: CEFUROXIME500 MG PO (10:05)
--- NOTE | 2025-03-07 11:00 | NUR ---
Spoke with Oliva. She is feeling much better today. Plans on going home. Updated PT recommended HH. Pt declines as she plans on not remaining home bound. We discussed OP therapy and she agrees to this as she states she has very poor balance. I spoke with Dr. Dupree and he will order. Pt denies needs. She states she has a walker at home. Home with friends today.
[2025-03-07 11:32] VITALS: BP 108/50
--- NOTE | 2025-03-07 16:26 | NUR ---
Chart faxed to [facility] as ordered.
== END 2025-03-07 12:10 | disposition home or self-care (01) ==
LOC: ED 16:06 → MS 16:07
PROVIDERS: Emergency Medicine; ADMIT Student in an Organized Health Care Education/Training Program; ATTEND Student in an Organized Health Care Education/Training Program
DX: N39.0 Urinary tract infection, site not specified (principal); R41.82 Altered mental status, unspecified; N17.9 Acute kidney failure, unspecified; I10 Essential (primary) hypertension; E11.9 Type 2 diabetes mellitus without complications; Z94.0 Kidney transplant status; Z79.899 Other long term (current) drug therapy; Z88.1 Allergy status to other antibiotic agents; Z88.8 Allergy status to other drugs, medicaments and biological substances; Z91.040 Latex allergy status; Z91.09 Other allergy status, other than to drugs and biological substances
CPT/HCPCS: 36415; 51701; 71045; 80048; 80053; 81001; 83605; 83735; 85025; 85610; 85730; 87040; 87088; 87186; 96361; 96365; 96366; 96368; 96375; 96376; 97162; 97166; 97535; 99285-25; A9270; G0378; J0696; J1815; J2405; J3475; J7121; J7512

== ENCOUNTER 2025-04-03 10:01 | Emergency (ER) | payer MEDICARE ==
[~2025-04-03] VITALS: Ht 160 cm; Wt 69.0 kg
[~2025-04-03 10:01] MED LIST changes: +ALENDRONATE SOD70 MG PO; +ATOMOXETINE HCL40 MG PO; +CEFUROXIME500 MG PO; +LAMICTAL25 MG PO; +TRADJENTA5 MG PO
[2025-04-03 10:28] LABS: BASOPHILS 0.6 % (0.1-1.2); EOSINOPHILS 1.6 % (0.7-5.8); LYMPHOCYTES 18.6 % (19.3-51.7); MCH 30.3 PG (25.6-32.2); MCHC 31.4 g/dL (32.2-35.5); MCV 96.7 fL (79.4-94.8); MONOCYTES 8.1 % (4.7-12.5); NEUTROPHILS 69.5 % (34.0-71.1); RBC 4.52 M/uL (3.93-5.22)
[2025-04-03] MEDS ORDERED: SODIUM CHLORIDE 0.9% 1,000 ML IV ONE (10:30)
[2025-04-03 10:44] LABS: ALT (SGPT) 10.0 U/L (14-59); AST (SGOT) 12.0 U/L (15-37); GLOMERULAR FILTRATION RATE,EST 43.0 mL/min (>60); PROTEIN, TOTAL 7.4 g/dL (6.4-8.2); UREA NITROGEN 20.0 mg/dL (7-18)
[2025-04-03] MEDS ORDERED: FAMCICLOVIR500 MG (10:47)
[2025-04-03 11:55] LABS: BLOOD/HGB, URINE TRACE-I (Negative); KETONE, URINE NEGATIVE (Negative); LEUK ESTERASE, URINE MODERATE (negative); NITRITE, URINE NEGATIVE (negative)
[2025-04-03 12:01] LABS: BACTERIA, URINE RARE /hpf (negative); CASTS, URINE NONE SEEN \\lpf; CRYSTALS, URINE NONE SEEN (0-1+); EPITHELIAL CELLS, URINE SQUAMOUS 1+ /lpf (0-1+); REFLEX CULTURE, URINE Yes (No)
[2025-04-03 15:02] LABS: BLOOD/HGB, URINE SMALL (Negative); KETONE, URINE NEGATIVE (Negative); LEUK ESTERASE, URINE MODERATE (negative); NITRITE, URINE NEGATIVE (negative)
[2025-04-03 15:07] LABS: BACTERIA, URINE NONE SEEN /hpf (negative); CASTS, URINE NONE SEEN \\lpf; CRYSTALS, URINE NONE SEEN (0-1+); EPITHELIAL CELLS, URINE SQUAMOUS 1+ /lpf (0-1+); REFLEX CULTURE, URINE Yes (No)
[2025-04-03] MEDS ORDERED: CEFDINIR300 MG PO (15:22)
[2025-04-03 16:15] VITALS: BP 111/64
== END 2025-04-03 16:16 | disposition home or self-care (01) ==
LOC: ED 10:01
PROVIDERS: Emergency Medicine
DX: N39.0 Urinary tract infection, site not specified (principal); Z94.0 Kidney transplant status; Z87.440 Personal history of urinary (tract) infections; Z91.81 History of falling; Z91.048 Other nonmedicinal substance allergy status; Z91.040 Latex allergy status; Z88.5 Allergy status to narcotic agent; Z88.1 Allergy status to other antibiotic agents; Z88.8 Allergy status to other drugs, medicaments and biological substances; Z79.01 Long term (current) use of anticoagulants; Z79.52 Long term (current) use of systemic steroids; Z79.83 Long term (current) use of bisphosphonates; Z79.899 Other long term (current) drug therapy
CPT/HCPCS: 36415; 70553; 80053; 81001; 83605; 85025; 87088; 87186; 96361; 96365; 99285-25; A9573; J0696; J7030

== ENCOUNTER 2025-04-27 09:27 | Emergency (ER) | payer MEDICARE ==
[~2025-04-27] VITALS: Ht 160 cm; Wt 71.3 kg
[~2025-04-27 09:27] MED LIST changes: +FAMCICLOVIR500 MG
[2025-04-27 10:24] LABS: BASOPHILS 0.9 % (0.1-1.2); EOSINOPHILS 1.6 % (0.7-5.8); LYMPHOCYTES 23.6 % (19.3-51.7); MCH 30.5 PG (25.6-32.2); MCHC 31.1 g/dL (32.2-35.5); MCV 98.2 fL (79.4-94.8); MONOCYTES 9.0 % (4.7-12.5); NEUTROPHILS 64.1 % (34.0-71.1); RBC 4.39 M/uL (3.93-5.22)
[2025-04-27 10:39] LABS: ALT (SGPT) 13.0 U/L (14-59); AST (SGOT) 17.0 U/L (15-37); GLOMERULAR FILTRATION RATE,EST 53.0 mL/min (>60); PROTEIN, TOTAL 7.1 g/dL (6.4-8.2); UREA NITROGEN 21.0 mg/dL (7-18)
[2025-04-27 11:25] LABS: BLOOD/HGB, URINE MODERATE (Negative); KETONE, URINE NEGATIVE (Negative); LEUK ESTERASE, URINE MODERATE (negative); NITRITE, URINE NEGATIVE (negative)
[2025-04-27 11:59] LABS: EPITHELIAL CELLS, URINE SQUAMOUS 2+ /lpf (0-1+)
[2025-04-27 12:00] LABS: BACTERIA, URINE 2+ /hpf (negative); CASTS, URINE NONE SEEN \\lpf; CRYSTALS, URINE CALCIUM OXALATE 1+ (0-1+); REFLEX CULTURE, URINE No (No)
[2025-04-27 13:20] LABS: BLOOD/HGB, URINE MODERATE (Negative); KETONE, URINE NEGATIVE (Negative); LEUK ESTERASE, URINE LARGE (negative); NITRITE, URINE NEGATIVE (negative)
[2025-04-27 13:36] LABS: BACTERIA, URINE 3+ /hpf (negative); CASTS, URINE NONE SEEN \\lpf; CRYSTALS, URINE NONE SEEN (0-1+); EPITHELIAL CELLS, URINE SQUAMOUS 1+ /lpf (0-1+)
[2025-04-27 13:37] LABS: REFLEX CULTURE, URINE Yes (No)
[2025-04-27] MEDS ORDERED: CEPHALEXIN500 M1 PO (14:17)
[2025-04-27 15:21] VITALS: BP 111/69
== END 2025-04-27 15:22 | disposition home or self-care (01) ==
LOC: ED 09:27
PROVIDERS: Emergency Medicine
DX: N39.0 Urinary tract infection, site not specified (principal); R90.0 Intracranial space-occupying lesion found on diagnostic imaging of central nervous system; I48.91 Unspecified atrial fibrillation; Z94.0 Kidney transplant status; Z87.440 Personal history of urinary (tract) infections; Z91.048 Other nonmedicinal substance allergy status; Z91.040 Latex allergy status; Z88.5 Allergy status to narcotic agent; Z88.1 Allergy status to other antibiotic agents; Z88.8 Allergy status to other drugs, medicaments and biological substances; Z79.01 Long term (current) use of anticoagulants; Z79.899 Other long term (current) drug therapy
CPT/HCPCS: 36415; 70450; 80053; 81001; 85025; 87077; 87088; 87186; 96365; 99285-25; J0696